=== PATIENT | female | born 1970 | race Caucasian/White ===

== ENCOUNTER 2023-03-06 07:30 | Day surgery (SDC) | payer OTHER ==
[~2023-03-06] VITALS: Ht 170.2 cm; Wt 92.3 kg
[2023-03-06 08:31] LABS: BASO % 0.4 % (0.0-1.0); EOS % 0.3 % (0.0-3.0); HEMATOCRIT 44.8 % (36.0-47.0); HEMOGLOBIN 14.9 g/dl (12.0-15.5); LYMPH # 1.4 10^3/uL (1.5-5.0); LYMPH % 14.2 % (24.0-44.0); MEAN CORPUSCULAR HGB CONC 33.3 g/dl (32.0-36.5); MEAN CORPUSCULAR VOLUME 96.3 fl (80.0-96.0); MONO # 0.6 10^3/uL (0.0-0.8); MONO % 6.6 % (2.0-8.0); NEUTROPHILS # 7.4 10^3/uL (1.5-8.5); NEUTROPHILS % 78.2 % (36.0-66.0); PLATELET COUNT, AUTOMATED 250 10^3/uL (150-450); RED BLOOD COUNT 4.65 10^6/uL (4.00-5.40); WHITE BLOOD COUNT 9.5 10^3/uL (4.0-10.0)
[2023-03-06 08:45] LABS: LIPASE 25 U/L (12-53)
[2023-03-06 08:48] LABS: ALKALINE PHOSPHATASE 91 U/L (46-116); ALT/SGPT 25 U/L (7.0-40); AMYLASE 59 U/L (30-118); AST/SGOT 12 U/L (<34); BILIRUBIN,DIRECT 0.4 MG/DL (<0.4); BILIRUBIN,TOTAL 1.3 MG/DL (0.3-1.2); BLOOD UREA NITROGEN 9 MG/DL (9-23); CALCIUM LEVEL 9.2 MG/DL (8.5-10.1); CARBON DIOXIDE LEVEL 27 MMOL/L (20-31); CHLORIDE LEVEL 103 MMOL/L (98-107); CREATININE FOR GFR 0.79 MG/DL (0.55-1.30); GLOMERULAR FILTRATION RATE > 60.0 (>51); GLUCOSE, FASTING 118 MG/DL (60-100); POTASSIUM SERUM 3.7 MMOL/L (3.5-5.1); SODIUM LEVEL 138 MMOL/L (136-145); TOTAL PROTEIN 7.3 G/DL (5.7-8.2)
[2023-03-06] MEDS ORDERED: MULT-90 PO (09:12)
[2023-03-06] MEDS ORDERED: NS 1,000 ML IV ONE (09:30)
[2023-03-06] MEDS ORDERED: ISOVUE-370 76% 100ML VIAL As Ordered ONE (09:39)
[2023-03-06] MEDS ORDERED: PIPERACILLIN/TAZOBACTAM SOD 4.5 GM in D5W MINI-BAG PLUS 50 ML IV ONE (11:40)
[2023-03-06] MEDS ORDERED: NS 1,000 ML IV SCH (11:40)
[2023-03-06] MEDS ORDERED: MED REC IN PROGRESS XX SCH (13:00)
[2023-03-06] MEDS ORDERED: HOME MED LIST COMPLETE! XX SCH (13:15)
[2023-03-06] MEDS ORDERED: ROCURONIUM BROMIDE 50MG/5ML VIAL As Ordered ONE (18:21)
[2023-03-06] MEDS ORDERED: propofoL 200 MG/20 ML VIAL As Ordered ONE (18:21)
[2023-03-06] MEDS ORDERED: ONDANSETRON 4MG 2ML VIAL As Ordered ONE (18:21)
[2023-03-06] MEDS ORDERED: KETOROLAC 60MG 2ML VIAL As Ordered ONE (18:21)
[2023-03-06] MEDS ORDERED: fentaNYL 100 MCG/2 ML INJECTION As Ordered ONE (18:21)
[2023-03-06] MEDS ORDERED: LIDOCAINE 2% 100MG/5ML SDV (FOR ANES.) As Ordered ONE (18:21)
[2023-03-06] MEDS ORDERED: MIDAZOLAM INJ 2MG/2ML VIAL As Ordered ONE (18:21)
[2023-03-06] MEDS ORDERED: SUGAMMADEX SODIUM 500 MG/5 ML VIAL (BRIDION) As Ordered ONE (18:21)
[2023-03-06] MEDS ORDERED: ZOSYN 3.375GM VIAL As Ordered ONE (18:46)
[2023-03-06] MEDS ORDERED: HYDROmorphone HCL 2MG/ML 1ML VIAL As Ordered ONE (19:05)
[2023-03-06] MEDS ORDERED: HYDR-4571 PO (19:37)
[2023-03-06] MEDS ORDERED: diphenhydrAMINE 50MG/ML VIAL IV PRN (19:40)
[2023-03-06] MEDS ORDERED: NALBUPHINE HCL 10 MG/ML 1ML AMP IV PRN (19:40)
[2023-03-06] MEDS ORDERED: PROMETHAZINE 25MG/ML 1ML VIAL IV PRN (19:40)
[2023-03-06] MEDS ORDERED: fentaNYL 100 MCG/2 ML INJECTION IV PRN (19:40)
[2023-03-06] MEDS ORDERED: ONDANSETRON 4MG 2ML VIAL IV PRN (19:40)
[2023-03-06] MEDS ORDERED: METOCLOPRAMIDE INJ 10MG/2ML VIAL IV PRN (19:40)
[2023-03-06] MEDS ORDERED: LR 1,000 ML IV SCH (19:40)
[2023-03-06] MEDS ORDERED: HYDROMORPHONE HCL 0.5 MG/ 0.5 ML SYRINGE IV PRN (19:40)
[2023-03-06] MEDS ORDERED: oxyCODONE 5MG TAB PO PRN (19:40)
[2023-03-06 20:20] VITALS: BP 114/60; TEMP 98.6; O2SAT 100
== END 2023-03-06 20:35 | disposition home or self-care (01) ==
LOC: M ED 07:30 → M SDC 07:31 → M ED 17:16 → M SDC 20:35
PROVIDERS: ATTEND Surgery
DX: K35.30 Acute appendicitis with localized peritonitis, without perforation or gangrene (principal); R59.9 Enlarged lymph nodes, unspecified; R10.31 Right lower quadrant pain; Z87.442 Personal history of urinary calculi
CPT/HCPCS: 44970; 74177; 80048; 80076; 81000; 81015; 82150; 83605; 83690; 85025; 88304; 93041; 96361; 96365; 99284; J1100; J1170; J1885; J2250; J2405; J2543; J3010; Q9967; S0020

== ENCOUNTER → 2023-06-19 | Outpatient (CLI) | payer OTHER ==
[~2023-06-19] MED LIST: HYDR-4571 PO; MULT-90 PO
== END ==
LOC: M SOG 15:20
PROVIDERS: ATTEND Orthopaedic Surgery Hand Surgery
DX: M25.532 Pain in left wrist (principal)